=== PATIENT | male | born 1955 | race Caucasian/White ===

== ENCOUNTER 2016-12-07 05:52 | Inpatient (IN) | payer OTHER ==
[~2016-12-07] VITALS: Ht 180.3 cm; Wt 95.3 kg
[2016-12-07] VITALS (9 sets, daily range): BP systolic 131–147; BP diastolic 77–102
[2016-12-07] MEDS ORDERED: ERTAPENEM SODIUM 1,000 MG in NACL 0.9% 50 ML IV ONE (06:05)
[2016-12-07] MEDS ORDERED: KEPPRA XR750 MG PO (06:54)
[2016-12-07] MEDS ORDERED: FLOMAX0.4 MG PO (06:55)
[2016-12-07] MEDS ORDERED: LOSARTAN POTASS25 MG PO (06:55)
[2016-12-07] MEDS ORDERED: CETIRIZINE HCL10 MG PO (06:56)
[2016-12-07] MEDS ORDERED: SINGULAIR10 MG PO (06:56)
[2016-12-07] MEDS ORDERED: VITAMIN D1000 IU PO (06:57)
[2016-12-07] MEDS ORDERED: VITAMIN B12100 MC1 PO (06:58)
[2016-12-07] MEDS ORDERED: ONDANSETRON 4 MG/2 ML VIAL IVP ONE (07:40)
[2016-12-07] MEDS ORDERED: PHENYLEPHRINE 10 MG/ML VIAL IM ONE (07:40)
[2016-12-07] MEDS ORDERED: SUCCINYLCHOLINE CHLORIDE 200 MG/10 ML VIAL IV ONE (07:40)
[2016-12-07] MEDS ORDERED: PROPOFOL 200 MG/20 ML VIAL IV ONE (07:40)
[2016-12-07] MEDS ORDERED: DEXAMETHASONE 4 MG/ML VIAL IVP ONE (07:40)
[2016-12-07] MEDS ORDERED: GLYCOPYRROLATE 0.2 MG/ML VIAL IV ONE (07:40)
[2016-12-07] MEDS ORDERED: ROCURONIUM 50 MG/5 ML VIAL IV ONE (07:40)
[2016-12-07] MEDS ORDERED: SEVOFLURANE 250 ML BTL INH ONE (07:40)
[2016-12-07] MEDS ORDERED: MIDAZOLAM 2 MG/2 ML VIAL ONE (07:44)
[2016-12-07] MEDS ORDERED: BUPIVACAINE-MPF 0.25% 30 ML VIAL INJ ONE ×2 (07:44→11:00)
[2016-12-07] MEDS ORDERED: fentaNYL 0.05 MG/ML VIAL ONE (07:45)
[2016-12-07] MEDS ORDERED: MEPERIDINE 50 MG/ML SYR ONE (07:45)
[2016-12-07] MEDS ORDERED: LACTATED RINGERS 1,000 ML IV SCH (08:33)
[2016-12-07] MEDS ORDERED: MEPERIDINE 25 MG/ML SYR IVP PRN (08:35)
[2016-12-07] MEDS ORDERED: ONDANSETRON 4 MG/2 ML VIAL IVP PRN (08:35)
[2016-12-07] MEDS ORDERED: diphenhydrAMINE 50 MG/ML VIAL IVP PRN (08:35)
[2016-12-07] MEDS ORDERED: HYDROmorphone 1 MG/ML AMP IVP PRN (08:35)
[2016-12-07] MEDS ORDERED: ATIVAN1 MG PO (08:39)
[2016-12-07] MEDS ORDERED: METHYLENE BLUE 1% 10 MG/ML AMP ONE (09:30)
[2016-12-07] MEDS ORDERED: ACETAMINOPHEN 325 MG TAB PO PRN (11:35)
[2016-12-07] MEDS ORDERED: ONDANSETRON 4 MG/2 ML VIAL IV PRN (11:35)
[2016-12-07] MEDS ORDERED: MORPHINE SULFATE 2 MG/ML SYR IVP PRN (11:35)
[2016-12-07] MEDS ORDERED: ZOLPIDEM 5 MG TAB PO PRN (11:35)
--- NOTE | 2016-12-07 12:20 | NUR ---
RECEIVED FROM RR THIS 61 YR. OLD WHITE MALE PER BED ACCPD. BY RR NURSES S/P EXPL. LAP., SIGMOID COLECTOMY WITH ANASTOMOSIS, TAKE DOWN COLOVESICAL FISTULA. PT. IS SEDATED BUT EASY TO AROUSE. 02 SAT 87% TO 88% ON RA. ENCOURAGED TO TAKE DEEP BREATHS. 02 ADM. AT 3L/M. 02 INC, TO 98% TO 99%. HOB ELEVATED 30 DEGREES. ABD. DRESSINGS DRY AND INTACT. ABDOMINAL BINDER IN PLACE. RT MOMO PRESENT WITH SMALL AMT DARK RED DR. FC. IN PLACE. URINE CLEAR YELLOW.
[2016-12-07] MEDS ORDERED: HYDROmorphone PFS 2 MG/ML SYR ONE (12:27)
--- NOTE | 2016-12-07 12:30 | NUR ---
IV CHANGED TO 0.9NS AT 140 ML/HR VIA LEFT HAND IV SITE. SCDS TO LOWER EXT. PRESENT.
[2016-12-07] MEDS: NACL 0.9% 1,000 ML IV SCH ×3 (12:52→19:58)
[2016-12-07] MEDS ORDERED: HYDROmorphone 1 MG/ML AMP ONE (13:06)
[2016-12-07] MEDS: HYDROmorphone 1 MG/ML AMP IVP PRN ×2 (13:06→20:56)
--- NOTE | 2016-12-07 13:15 | NUR ---
VISITING AT BEDSIDE. UPDATED ON PT'S CONDITION.
--- NOTE | 2016-12-07 14:00 | NUR ---
ASKING FOR SOMETHING TO DRINK. INSTRUCTED ON BEING ON NPO. RINSED MOUTH WITH COLD WATER. FELT BETTER AFTER.
--- NOTE | 2016-12-07 14:30 | NUR ---
RT MOMO HAD 50 ML OF DARK RED DRAINAGE.
--- NOTE | 2016-12-07 15:08 | NUR ---
INITIAL REVIEW FAXED TO [facility] [phone] PHONE MARCH [phone]
[2016-12-07] MEDS: MORPHINE SULFATE 4 MG/ML SYR IV PRN ×3 (15:24→23:40)
[2016-12-07] MEDS ORDERED: PNEUMOCOCCAL VACCINE 23 MCG/0.5 ML VIAL IMVAC SCH (15:50)
--- NOTE | 2016-12-07 16:45 | NUR ---
PT. WANTS TO SIT AT EDGE OF BED. "MY BACK IS BOTHERING ME". ASSISTED. FELT BETTER. HAD OCC. BOUTS OF NON- PRODUCTIVE COUGH. VISITING AT BEDSIDE.
--- NOTE | 2016-12-07 17:00 | NUR ---
WANTS OFF. SAT 93% ON RA.
--- NOTE | 2016-12-07 17:45 | NUR ---
STILL SITTING AT SIDE OF BED. DR. ORTIZ HERE TO SEE AND EXAMINE PT.
--- NOTE | 2016-12-07 18:15 | NUR ---
ASSISTED BACK TO BED.
--- NOTE | 2016-12-07 18:30 | NUR ---
PT'S BELONGINGS (BAG OF CLOTHES) TAKEN HOME BY BREANNA
--- NOTE | 2016-12-07 19:30 | NUR ---
RECEIVED REPORT FROM LEVY ROMAN. PT IS AWAKE, ALERT, ORIENTED X4, LYING ON BED COMFORTABLY. ATTACHED TO AUTOMOTIVE FUEL SYSTEMS CONVERTER AND PULSE OXIMETER. IVF AT LEFT HAND 20G, PATENT, INTACT AT THIS TIME. ABDOMINAL BINDER INTACT, MOMO DRAIN AT RIGHT SIDE OF ABDOMEN. NO DRAINAGE NOTED AT THIS TIME. NO SOB/ NO DISTRESS NOTED AT THIS TIME. CORBETT CATH INTACT. SCDS IN PLACE. BED IN LOW POSITION, HOB ELEVATED 30 DEGREES, SAFETY MEASURE ENSURE, WILL CONTINUE TO MONITOR.
--- NOTE | 2016-12-07 20:00 | NUR ---
CALLED DR. ORTIZ FOR YARY ORDER. PLEASE SEE MD ORDER. PT IS ON NPO EXCEPT MEDS ORDERED.
--- NOTE | 2016-12-07 20:15 | NUR ---
FAMILY MEMBER/ AT BEDSIDE. UPDATED OF PATIENT'S CONDITION.
[2016-12-07] MEDS ORDERED: levETIRAcetam 500 MG TAB PO SCH (21:00)
--- NOTE | 2016-12-07 21:15 | NUR ---
PT ASLEEP AT THIS TIME, O2 SAT BETWEEN 84%- 88%. PT PLACED ON O2 AT 2LPM VIA NASAL CANNULA. NO SIGNS OF DISTRESS NOTED, O2 SAT AFTER O2 ADMINISTRATION IS 95%. WILL CONTINUE TO MONITOR. Addendum: 12/07/16 at 2146 by Casper Lanier RN RT AWARE.
--- NOTE | 2016-12-07 22:10 | NUR ---
PT BELONGING ADJUSTMENT. BROUGHT EYEGLASSES. PT SIGNED BELONGING LIST FORM, ATTACHED COPY TO CHART AND ANOTHER GIVEN TO PT.
--- NOTE | 2016-12-07 22:30 | NUR ---
PT AWAKE AT THIS TIME. DENIES PAIN.
--- NOTE | 2016-12-07 23:48 | NUR ---
PT GIVEN MORPHINE 4MG IV ORDERED. COMPLAINT OF ABDOMINAL PAIN, NON-RADIATING. PAIN SCALE 6/10. WILL CONTINUE TO MONITOR. NO SOB/ DISTRESS NOTED.
[2016-12-08] VITALS (8 sets, daily range): BP systolic 119–134; BP diastolic 60–85
--- NOTE | 2016-12-08 00:39 | NUR ---
OXYGEN SAT 96%. PT RESTING COMFORTABLY ON BED.
[2016-12-08] MEDS: NACL 0.9% 1,000 ML IV SCH ×4 (02:03→23:46)
--- NOTE | 2016-12-08 02:06 | NUR ---
PT AWAKE. PT STATED HE IS HAVING DIFFICULTY SLEEPING. PT NOTED TO BE A LITTLE UNEASY. AMBIEN 5MG I TAB GIVEN ORDERED. NO SOB/ DISTRESS NOTED, VSS. WILL CONTINUE TO MONITOR.
--- NOTE | 2016-12-08 04:33 | NUR ---
PT ASLEEP AT THIS TIME.
--- NOTE | 2016-12-08 04:51 | NUR ---
STRINGED INSTRUMENT REPAIRER AT BEDSIDE FOR AM LAB.
[2016-12-08] MEDS: HYDROmorphone 1 MG/ML AMP IVP PRN ×4 (05:55→20:49)
--- NOTE | 2016-12-08 06:02 | NUR ---
MORNING CARE DONE. PT ABLE TO WALK FROM ONE SIDE OF THE BED TO ANOTHER SIDE. WILL CONTINUE TO MONITOR. PT ABLE TO PASS GAS AND ABLE TO BURP. PAIN MEDS, DIALUDID IV GIVEN ORDERED. ABDOMINAL PAIN WITH PAIN SCALE OF 7/10. VSS. WILL CONTINUE TO MONITOR.
--- NOTE | 2016-12-08 06:05 | NUR ---
ABDOMINAL DRESSING CHANGE WITH MINIMAL DRAINAGE/SLIGHT OOZING OF BLOOD AT THE SURGICAL SITE. PICTURE TAKEN AT THE SURGICAL SITE, LENGTH 17.5CM, 20 LOC, SKIN REDNESS NOTED AT BOTH SITE OF THE ABDOMEN DUE TO THE TAPE , PICTURE TAKEN AND ATTACHED TO CHART. SUTURE NOTED AROUND THE MOMO TUBE.
--- NOTE | 2016-12-08 07:15 | NUR ---
REPORT GIVEN TO LEVY CORBETT FOR CONTINUITY OF CARE.
--- NOTE | 2016-12-08 07:20 | NUR ---
RECEIVED REPORT FROM LEVY FERNANDEZ. PT SEEN AT BEDSIDE WATCHING TV; AAOX4, NO S/S DISTRESS AT THIS TIME. PT IS ON 2L O2 VIA NC SATURATING AT 94% AT THIS TIME. PT COMPLAINS OF STUFFY NOSE. LEFT HAND 20G IV RUNNING IVF AT THIS TIME. NO S/S COMPLICATIONS AT THIS TIME; BLOOD RETURN VISIBLE. PT ON BOOM BOSS RUNNING SINUS RHYTHM. CORBETT CATHETER IN PLACE RUNNING CLEAR, YELLOW URINE. PT IS S/P EXP LAP SIGMOID COLECTOMY. PT REPORTS BURPING AND FLATUS DURING THE NIGHT. ABD INCISION NOTED WITH RIGHT LOWER ABD MOMO DRAINING SEROSANGUINEOUS FLUID. PT REPORTS HAVING SEVERE PAIN ON INCISION SITE, BUT MINIMAL PAIN AT THIS TIME. PT ABLE TO AMBULATE X1 ASSIST. SAFETY MEASURES CHECKED, CALL LIGHT LEFT AT BEDSIDE. WILL CONTINUE TO MONITOR.
--- NOTE | 2016-12-08 07:56 | NUR ---
DR ORTIZ AT BEDSIDE TALKING TO PATIENT. UPDATE MD ON PATIENT CONDITION. WILL FOLLOW UP WITH ORDERS.
[2016-12-08] MEDS: levETIRAcetam 500 MG TAB PO SCH ×2 (08:20→20:49)
[2016-12-08] MEDS: LOSARTAN 25 MG TAB PO SCH (08:21)
[2016-12-08] MEDS: LORazepam 1 MG TAB PO SCH ×2 (08:21→08:34)
[2016-12-08] MEDS: TAMSULOSIN 0.4 MG CAP PO SCH (08:21)
[2016-12-08] MEDS: LORATADINE 10 MG TAB PO SCH (08:21)
[2016-12-08] MEDS: MONTELUKAST SODIUM 10 MG TAB PO SCH (08:21)
--- NOTE | 2016-12-08 08:28 | NUR ---
PATIENT HAS BEEN SCREENED AND CATEGORIZED MODERATE NUTRITION RISK. PATIENT WILL BE SEEN WITHIN 3-5 DAYS OF ADMISSION. 12/09/16-12/11/[address]
--- NOTE | 2016-12-08 08:32 | NUR ---
ROUTINE MEDICATIONS GIVEN WITH EDUCATION. PT VERBALIZED UNDERSTANDING. PT REFUSED ATIVAN, VITAMIN D, AND VITAMIN B12 AT THIS TIME. SAYS HE USES THEM ONLY NEEDED BASIS AT HOME.
[2016-12-08] MEDS: CYANOCOBALAMIN 100 MCG TAB PO SCH (08:34)
[2016-12-08] MEDS: CHOLECALCIFEROL 1,000 IU TAB PO SCH (08:34)
[2016-12-08] MEDS ORDERED: NON-FORMULARY ITEM (Cetirizine HCl (Cetirizine Hcl) 10 MG) PO SCH (09:00)
[2016-12-08] MEDS ORDERED: CYANOCOBALAMIN 100 MCG TAB PO SCH (09:00)
[2016-12-08] MEDS ORDERED: NON-FORMULARY ITEM (Levetiracetam* (Keppra Xr*) 750 MG) PO SCH (09:00)
--- NOTE | 2016-12-08 09:00 | NUR ---
PT'S , BREANNA, AT BEDSIDE.
[2016-12-08] MEDS: ENOXAPARIN 40 MG/0.4 ML SYR SUBQ SCH (10:41)
--- NOTE | 2016-12-08 11:08 | NUR ---
FAXED CONCURRENT REVIEW TO [facility] [phone] PHONE MARCH [phone] ANAYA [phone]
--- NOTE | 2016-12-08 11:30 | NUR ---
PT SLEEPING AT THIS TIME. WILL CONTINUE TO MONITOR.
[2016-12-08] MEDS: PIPER/TAZO 3.375GM/D5W PREMIX 50 ML IV SCH ×3 (11:51→23:37)
--- NOTE | 2016-12-08 11:51 | NUR ---
OSMAR ADMINISTERED WITH EDUCATION. PT VERBALIZED UNDERSTANDING. WILL CONTINUE TO MONITOR.
[2016-12-08] MEDS: FAMOTIDINE 20 MG/2 ML VIAL IV SCH (12:53)
--- NOTE | 2016-12-08 13:45 | NUR ---
PT'S , BREANNA AT BEDSIDE. PT INSTRUCTIONS GIVEN TO PATIENT AND HIS . SIGNATURE RECEIVED FOR PATIENT INSTRUCTIONS.
--- NOTE | 2016-12-08 14:05 | NUR ---
DILAUDID ADMINISTERED FOR ABD PAIN 04/26. WILL CONTINUE TO MONITOR.
--- NOTE | 2016-12-08 14:20 | NUR ---
PT C/O STUFFY NOSE. ATTACHED HUMIDIFIER TO O2.
[2016-12-08] MEDS ORDERED: SODIUM CHLORIDE 0.65% 45 ML BTL NS PRN (14:30)
--- NOTE | 2016-12-08 14:33 | NUR ---
PT C/O NASAL CONGESTION. PER DR DEE, ORDER SALINE NASAL SPRAY PRN Q4H FOR CONGESTION. WILL FOLLOW UP WITH ORDER
--- NOTE | 2016-12-08 14:38 | NUR ---
PT STATES THAT HIS NASAL CONGESTION IS MUCH BETTER AFTER ATTACHING THE HUMIDIFIER. WILL CONTINUE TO MONITOR.
--- NOTE | 2016-12-08 16:56 | NUR ---
RECEIVED REPORT FROM LEVY CORBETT. AWAITING ARRIVAL OF PT TO UNIT.
--- NOTE | 2016-12-08 17:02 | NUR ---
PT STATED HE WOULD LIKE PNA VACCINE AT D/C.
--- NOTE | 2016-12-08 17:30 | NUR ---
PT ARRIVED TO UNIT VIA [facility]. PT IS AAOX4, ON O2 2L/MIN NC. IV TO LEFT HAND #20 PATENT AND INTACT. SURGICAL WOUND NOTED TO ABDOMEN, DRESSING DRY AND INTACT WITH ABDOMINAL BINDER IN PLACE. MOMO DRAINAGE BAG X1 NOTED TO RIGHT ABD. CORBETT CATHETER IN PLACE DRAINING TO GRAVITY DRAINAGE DEVICE. PT ORIENTED TO ROOM. SEIZURE PRECAUTIONS IN PLACE WITH BED IN LOWEST POSITION AND SIDE RAILS UPX2, PADDED. CALL LIGHT WITHIN REACH. WILL CONTINUE TO MONITOR. Addendum: 12/08/16 at 1758 by Milla Francis RN BP: 126/79, TEMP: 99.8, HR: 86, RR: 18, O2: 91%.
--- NOTE | 2016-12-08 18:15 | NUR ---
PT TOLERATED MEDS WELL.
--- NOTE | 2016-12-08 19:16 | NUR ---
ENDORSED CARE TO LEVY REYNOSO. PT IN STABLE CONDITION.
--- NOTE | 2016-12-08 19:40 | NUR ---
SEEN PT AWAKE, ALERT AND ORIENTED LYING IN BED. INITIAL ASSESSMENT DONE. PT HAS ABD INCISION W/ DRESSING-CLEAN, DRY AND INTACT W/ ABD BINDER ON. MOMO NOTED W/ SMALL AMOUNT OF SEROSANGUINEOUS OUTPUT. PT DENIES ANY GAS BUT SAID HE'S BURPING. PT STATES HE'S BEEN OUT OF BED LIKE STANDING AND SITTING ON THE EDGE OF THE BED. VITAL SIGNS CHECKED. PT COMPLAINS OF 8/10 INCISIONAL PAIN. WILL MEDICATE FOR PAIN ORDERED. PLAN OF CARE DISCUSSED. PT VERBALIZED UNDERSTANDING. SAFETY ENSURED. WILL CONTINUE TO MONITOR.
--- NOTE | 2016-12-08 21:00 | NUR ---
ASSISTED PT TO GET OUT OF BED. PT WANTS TO STRETCH OUT. MEDICATIONS GIVEN W/ TEACHINGS. WILL CONTINUE TO MONITOR.
--- NOTE | 2016-12-08 23:45 | NUR ---
SEEN PT AWAKE. IVPB GIVEN ORDERED. PT WANTS TO GET UP. ASSISTED PT TO GET OUT OF BED. WILL MEDICATE FOR PAIN ORDERED.
[2016-12-09] VITALS: BP 116/80
[2016-12-09] MEDS: HYDROcodone/APAP 5/325 MG 1 TAB TAB PO PRN ×4 (00:21→20:56)
[2016-12-09 04:00] VITALS: BP 134/94
--- NOTE | 2016-12-09 04:10 | NUR ---
SEEN PT AWAKE AND GOT UP FROM BED STRETCHING W/ HOG KILLER ASSISTANCE. VITAL SIGNS CHECKED. PT DENIES ANY DISCOMFORT. WILL CONTINUE TO MONITOR.
[2016-12-09] MEDS: PIPER/TAZO 3.375GM/D5W PREMIX 50 ML IV SCH ×4 (06:05→23:29)
--- NOTE | 2016-12-09 07:25 | NUR ---
SPOKE TO DR ORTIZ REGARDING PT'S UPDATES. HE SAID TO ADVANCE DIET TO CLEAR LIQUID DIET.
--- NOTE | 2016-12-09 07:26 | NUR ---
PT ALERT AND ORIENTED X4. BREATHING EVENLY AND UNLABORED. NO SIGNS OF ACUTE DISTRESS. SKIN IS WARM AND DRY. NOTED PT IS S/P EXPLORE LAP WITH MOMO DRAIN AT 10CC SEROSANGUINEOUS FLUID. NO C/O NAUSEA, CORBETT CATHETER NOTED WITH CLEAR ANGLE COLORED URINE AT 50CC. CHRISTOPHER OF ANY PAIN AT THIS TIME. ALL NEEDS ATTENDED. SAFETY PRECAUTIONS MAINTAINED. CALL LIGHT WITHIN REACH. Addendum: 12/09/16 at 0840 by Augusto Rowe RN PT ALERT AND ORIENTED X4. BREATHING EVENLY AND UNLABORED. NO SIGNS OF ACUTE DISTRESS. SKIN IS WARM AND DRY. NOTED PT IS S/P EXPLORE LAP WITH MOMO DRAIN AT 10CC SEROSANGUINEOUS FLUID. NO C/O NAUSEA, CORBETT CATHETER NOTED WITH CLEAR ANGLE COLORED URINE AT 50CC. DENIES OF ANY PAIN AT THIS TIME. ALL NEEDS ATTENDED. SAFETY PRECAUTIONS MAINTAINED. CALL LIGHT WITHIN REACH. Addendum: 12/09/16 at 0856 by Augusto Rowe RN PT ALERT AND ORIENTED X4. BREATHING EVENLY AND UNLABORED. NO SIGNS OF ACUTE DISTRESS. SKIN IS WARM AND DRY. NOTED PT IS S/P EXPLORE LAP WITH MOMO DRAIN AT 10CC SEROSANGUINEOUS FLUID. NO C/O NAUSEA, CORBETT CATHETER NOTED WITH CLEAR YELLOW COLORED URINE AT 400CC. CHRISTOPHER OF ANY PAIN AT THIS TIME. ALL NEEDS ATTENDED. SAFETY PRECAUTIONS MAINTAINED. CALL LIGHT WITHIN REACH.
[2016-12-09 08:09] VITALS: BP 126/53
[2016-12-09] MEDS: NACL 0.9% 1,000 ML IV SCH ×3 (08:12→21:47)
[2016-12-09] MEDS: LORATADINE 10 MG TAB PO SCH (08:32)
[2016-12-09] MEDS: LOSARTAN 25 MG TAB PO SCH (08:32)
[2016-12-09] MEDS: levETIRAcetam 500 MG TAB PO SCH ×2 (08:32→20:58)
[2016-12-09] MEDS: TAMSULOSIN 0.4 MG CAP PO SCH (08:32)
[2016-12-09] MEDS: LORazepam 1 MG TAB PO SCH (08:32)
[2016-12-09] MEDS: CHOLECALCIFEROL 1,000 IU TAB PO SCH (08:33)
[2016-12-09] MEDS: CYANOCOBALAMIN 100 MCG TAB PO SCH (08:33)
[2016-12-09] MEDS: MONTELUKAST SODIUM 10 MG TAB PO SCH (08:33)
[2016-12-09] MEDS: ENOXAPARIN 40 MG/0.4 ML SYR SUBQ SCH (08:34)
--- NOTE | 2016-12-09 09:33 | NUR ---
WAS SEEN BY DR. DEE, NEW LAB ORDERS RECEIVED. NOTED AND CARRIED OUT.
--- NOTE | 2016-12-09 09:55 | NUR ---
CM NOTE CONCURRENT REVIEW FAXED TO [facility] / FAX# [phone], ATTN: MARCH #[phone]
[2016-12-09] MEDS: FAMOTIDINE 20 MG/2 ML VIAL IV SCH (11:35)
[2016-12-09 12:00] VITALS: BP 131/78
--- NOTE | 2016-12-09 14:22 | NUR ---
PT ABLE TO AMBULATE AND WALK 180FT. TOLERATED WELL. CONTINUE TO MONITOR.
[2016-12-09 16:00] VITALS: BP 107/66
--- NOTE | 2016-12-09 18:54 | NUR ---
PT ALERT AND RESPONSIVE, NO SIGNS OF ACUTE DISTRESS. ENDORSED TO ONCOMING UNEMPLOYMENT INSURANCE DIRECTOR NURSE FOR CONTINUITY OF CARE.
--- NOTE | 2016-12-09 19:30 | NUR ---
RECEIVED FROM AM RN IN BED AWAKE AND ALERT. ORIENTED X 4. CLEAR SPEECH. TELEMETRY MONITORING. CORBETT CATHETER IN PLACE AND DRAINING WELL WITH YELLOW URINE. MOMO TO RIGHT ABDOMEN WITH SEROUS SANGUINOUS OUTPUT. CALL LIGHT WITH IN REACH. CARE PLANS FOR THE NIGHT DISCUSSED WITH HIM. AFEBRILE.
[2016-12-09 20:00] VITALS: BP 130/89
--- NOTE | 2016-12-09 22:30 | NUR ---
AWAKE AND TALKING WITH CLINICAL LABORATORY TECHNOLOGIST . WATCHING TV. ABLE TO VERBALIZE NEEDS WELL. ENCOURAGED TO USE CALL LIGHT FOR HELP. "OK"
[2016-12-10] VITALS: BP 133/84
--- NOTE | 2016-12-10 | NUR ---
STILL AWAKE AT THIS TIME WATCHING TV. ENCOURAGED TO SLEEP. CALL LIGHT WITH IN REACH. NO BLEEDING NOTED TO ABDOMINAL DRESSING.
--- NOTE | 2016-12-10 02:32 | NUR ---
SLEEPING. NO RESTLESSNESS. CALL LIGHT WITH IN REACH. TELEMETRY MONITORING.
[2016-12-10 04:00] VITALS: BP 115/73
--- NOTE | 2016-12-10 04:19 | NUR ---
SLEEPING WELL. TELEMETRY MONITORING. NO SOB. CALL LIGHT WITH IN REACH.
[2016-12-10] MEDS: HYDROcodone/APAP 5/325 MG 1 TAB TAB PO PRN (05:00)
[2016-12-10] MEDS: PIPER/TAZO 3.375GM/D5W PREMIX 50 ML IV SCH (05:00)
--- NOTE | 2016-12-10 07:17 | NUR ---
RECEIVED REPORT FROM LEVY MCINTYRE. PT IS SLEEPING BUT EASILY AWAKEN, AAO X4, IV ON LEFT HAND PATENT AND INTACT INFUSING FLUID WELL, ABD INCISION WITH DRESSING DRY AND INTACT NOTED, MOMO DRAIN NOTED WITH REDDISH DRAIN, CORBETT CATH IN PLACE DRAINING CLEAR YELLOW URINE, INITIAL ASSESSMENT DONE, NO S/S OF RESPIRATORY DISTRESS OR DISCOMFORT NOTED, DISCUSSED PLAN OF CARE. PT VERBALIZED UNDERSTANDING, SAFETY/FALL PRECAUTION ENFORCED, CALL LIGHT WITHIN REACH, WILL CONTINUE TO MONITOR.
--- NOTE | 2016-12-10 07:39 | NUR ---
SITTING IN BED AWAKE AND ALERT. NO COMPLAINTS DONE. TELEMETRY MONITORING. NO SOB. CALL LIGHT WITH IN REACH.
[2016-12-10 08:00] VITALS: BP 143/92
[2016-12-10] MEDS: TAMSULOSIN 0.4 MG CAP PO SCH (08:35)
[2016-12-10] MEDS: LORazepam 1 MG TAB PO SCH (08:35)
[2016-12-10] MEDS: MONTELUKAST SODIUM 10 MG TAB PO SCH (08:35)
[2016-12-10] MEDS: levETIRAcetam 500 MG TAB PO SCH (08:35)
[2016-12-10] MEDS: CHOLECALCIFEROL 1,000 IU TAB PO SCH (08:36)
[2016-12-10] MEDS: LOSARTAN 25 MG TAB PO SCH (08:36)
[2016-12-10] MEDS: LORATADINE 10 MG TAB PO SCH (08:36)
[2016-12-10] MEDS: ENOXAPARIN 40 MG/0.4 ML SYR SUBQ SCH (08:38)
--- NOTE | 2016-12-10 08:40 | NUR ---
DUE MEDS GIVEN, PT TOLERATED WELL, ALL NEEDS MET AT THIS TIME, CALL LIGHT WITHIN REACH, WILL CONTINUE TO MONITOR.
[2016-12-10] MEDS: CYANOCOBALAMIN 100 MCG TAB PO SCH (09:24)
--- NOTE | 2016-12-10 10:19 | NUR ---
SPOKE TO DR. ORTIZ, UPDATED PT'S CURRENT CONDITION, NEW ORDERS RECEIVED, WILL CARRY OUT NEW ORDERS, INFORMED REGARDING PT'S POTASSIUM OF 3.4, NO NEW ORDERS RECEIVED. DR. ORTIZ STATED HE WILL SEE THE PT LATER.
[2016-12-10] MEDS: NACL 0.9% 1,000 ML IV SCH (11:12)
[2016-12-10 12:00] VITALS: BP 115/73
[2016-12-10] MEDS: FAMOTIDINE 20 MG/2 ML VIAL IV SCH (12:24)
--- NOTE | 2016-12-10 12:53 | NUR ---
PT IS CURRENTLY AMBULATING ON THE HALLWAY, PT IS TOLERATING WELL, NO S/S OF RESPIRATORY DISTRESS OR DISCOMFORT NOTED, WILL CONTINUE TO MONITOR.
--- NOTE | 2016-12-10 14:12 | NUR ---
CM NOTE CONCURRENT REVIEW FAXED TO [facility] / FAX# [phone], ATTN: MARCH #[phone]
[2016-12-10] MEDS ORDERED: NORCO 325 MG-7.1 TAB PO (15:24)
[2016-12-10] MEDS ORDERED: NORCO 325 MG-51 TAB PO (15:27)
[2016-12-10] MEDS ORDERED: ZOFRAN ODT4 MG PO (15:27)
--- NOTE | 2016-12-10 16:00 | NUR ---
DISCHARGE INSTRUCTIONS AND PRESCRIPTION GIVEN, PT TEACHING ON HOW TO EMPTY CORBETT, MOMO DRAIN, AND CLEAN INCISION, PT VERBALIZED UNDERSTANDING, REMOVED TELE, ID WRISTBAND AND IV, CATHETER TIP INTACT, PT REFUSED PNA VACCINE STATED THAT HE WILL GET IT FROM HIS PCP, PT LEFT THE UNIT VIA WHEELCHAIR ACCOMPANIED BY , PT STABLE UPON DISCHARGE.
== END 2016-12-10 16:00 | disposition home or self-care (01) | DRG 441 ==
LOC: MMU 05:52 → EDSTATUS 07:30 → MLD 13:18 → MIC 13:23 → MTU 12-08 17:25
PROVIDERS: ADMIT Surgery; ATTEND Surgery
PROC: 0TQB0ZZ Repair Bladder, Open Approach (ICD-10-PCS; 2016-12-07)
PROC: 0DJD8ZZ Inspection of Lower Intestinal Tract, Via Natural or Artificial Opening Endoscopic (ICD-10-PCS; 2016-12-07)
PROC: 0DBN0ZZ Excision of Sigmoid Colon, Open Approach (ICD-10-PCS; principal; 2016-12-07 07:30)
DX: N32.1 Vesicointestinal fistula (principal); K56.69 Other intestinal obstruction; K57.32 Diverticulitis of large intestine without perforation or abscess without bleeding; J44.9 Chronic obstructive pulmonary disease, unspecified; I10 Essential (primary) hypertension; E78.5 Hyperlipidemia, unspecified; F17.210 Nicotine dependence, cigarettes, uncomplicated; K64.8 Other hemorrhoids; K64.4 Residual hemorrhoidal skin tags; G40.909 Epilepsy, unspecified, not intractable, without status epilepticus; M19.90 Unspecified osteoarthritis, unspecified site; F41.9 Anxiety disorder, unspecified; D72.829 Elevated white blood cell count, unspecified; Z28.21 Immunization not carried out because of patient refusal

== ENCOUNTER 2017-12-25 11:25 | Emergency (ER) | payer OTHER ==
[~2017-12-25] VITALS: Ht 180.3 cm; Wt 95.3 kg
[~2017-12-25 11:25] MED LIST: ACET-2869 PO; CETI10TA71 PO; LEVE750T25 PO; LORA-476 PO; LOSA25TA22 PO; MONT10TA35 PO; ONDA4ODT1 PO; TAMS0.4C96 PO; VITB12 PO; VITD1000 PO
[2017-12-25 11:31] VITALS: BP 143/94
--- NOTE | 2017-12-25 11:36 | NUR ---
PT TAKEN TO BED 10.
--- NOTE | 2017-12-25 11:40 | NUR ---
62M BIB SELF WITH C/O 5/10 "DULL" POSTERIOR RIGHT SHOULDER PAIN RADIATING TO RIGHT ARM SINCE WEDNESDAY MORNING; SUDDEN ONSET, WOKE UP THAT MORNING WITH GRADUAL ONSET OF PAIN; FULL ROM; DENIES INJURY OR TRAUMA, CP, OR SOB. PT REPORTS OF INTERMITTENT NUMBNESS AND TINGLING. CMS INTACT. PT IS AOX4. RR ARE EVEN AND UNLABORED. SKIN WARM/PINK/DRY. NO ACUTE DISTRESS AT THIS TIME. AWAITING ER MD LEIVA. ALL NEEDS MET AT THIS TIME. WILL CONTINUE TO MONITOR.
[2017-12-25] MEDS ORDERED: HYDROcodone/APAP 5/325 MG 1 TAB TAB PO ONE (13:10)
[2017-12-25] MEDS ORDERED: METHOCARBAMOL 500 MG TAB PO SCH (13:10)
--- NOTE | 2017-12-25 13:23 | NUR ---
XRAY AT BEDSIDE.
[2017-12-25 15:25] VITALS: BP 146/90
--- NOTE | 2017-12-25 15:25 | NUR ---
Patient discharged with v/s stable. Written and verbal after care instructions given and explained. Patient alert, oriented and verbalized understanding of instructions. Ambulatory with steady gait. All questions addressed prior to discharge. ID band removed. Patient advised to follow up with PMD. Rx of [place] and Robaxin given. Patient educated on indication of medication including possible reaction and side effects. Opportunity to ask questions provided and answered.
== END 2017-12-25 15:25 | disposition home or self-care (01) ==
LOC: MED 11:25
DX: M25.511 Pain in right shoulder (principal); M62.838 Other muscle spasm; I10 Essential (primary) hypertension
CPT/HCPCS: 71045; 93005; 99284; Q0092

== ENCOUNTER 2021-12-27 12:59 | Emergency (ER) | payer OTHER ==
[~2021-12-27] VITALS: Ht 180.3 cm; Wt 96.6 kg
[~2021-12-27 12:59] MED LIST changes: -ACET-2869 PO; +HYDR-5122 PO; -LOSA25TA22 PO; +LOSA25TA43 PO; +ONDA-188 PO; -ONDA4ODT1 PO
[2021-12-27 13:03] VITALS: BP 144/91
--- NOTE | 2021-12-27 13:15 | NUR ---
Patient ambulated with steady gait to bed 9.
--- NOTE | 2021-12-27 13:15 | NUR ---
Patient ambulated to bed 09 with steady/even gait.
--- NOTE | 2021-12-27 13:18 | NUR ---
Dropped off urine specimen to lab gave sample to Kira, CPT
--- NOTE | 2021-12-27 13:20 | NUR ---
66 y/o M BIB self from home c/o urinary retention x 4 weeks. Patient A&Ox4, ambulatory, has been seen PCP and was prescribed by ABX for UTI. Pt reports ABX completed. Patient states "has some burning towards the end of urinating." Patient states his flow is not strong. Patient has had prostate problems in the past and is currently taking Tamulosin. Patient denies fever, chills, nausea, vomiting, diarrhea. UA collected. Bed locked in lowest position, side rails x 1. PMH/Sx/Meds: Denies NKDA
[2021-12-27 13:52] LABS: APPEARANCE,URINE SL CLOUDY (CLEAR); BILIRUBIN,URINE NEGATIVE (NEGATIVE); BLOOD, URINE NEGATIVE (NEGATIVE); COLOR,URINE YELLOW (YELLOW); LEUKOCYTE ESTERASE ,URINE NEGATIVE (NEGATIVE); NITRITE, URINE NEGATIVE (NEGATIVE); PH,URINE 5.5 (5.0-9.0); UGLUCOSE NEGATIVE (NEGATIVE)
--- NOTE | 2021-12-27 13:54 | NUR ---
Ultrasound at bedside
[2021-12-27 14:11] LABS: WHITE BLOOD COUNT (AUTO) 6.3 K/uL (4.8-10.8)
[2021-12-27 14:28] LABS: BASOPHILS # (AUTO) 0.1 K/uL (0.00-0.22)
[2021-12-27 14:29] LABS: ALBUMIN 4.3 g/dL (3.4-5.0); ANION GAP 12.3 (8-16); CARBON DIOXIDE 24.5 mmol/L (21-32); CREATININE 1.3 mg/dL (0.6-1.3); POTASSIUM 3.8 mmol/L (3.5-5.1); TOTAL BILIRUBIN 0.5 mg/dL (0.0-1.0)
[2021-12-27 14:44] LABS: HEMOGLOBIN 13.8 g/dL (12.0-18.0); MEAN CORPUSCULAR HGB CONC 34 g/dL (33-37); NEUTROPHILS # (AUTO) 4.5 K/uL (1.8-7.7)
[2021-12-27 15:22] LABS: HEMATOCRIT 40.8 % (36-52); MEAN CORPUSCULAR HEMOGLOBIN 33 pg (27-31); PLATELET COUNT (AUTO) 252 K/uL (140-450); RED BLOOD CELL COUNT(AUTO) 4.25 MIL/uL (4.20-6.10); RED CELL DISTRIBUTION WIDTH 14.1 % (11.6-13.7)
[2021-12-27 15:23] LABS: BASOPHILS % (AUTO) 0.9 % (0.0-2.0); EOSINOPHILS # (AUTO) 0.1 K/uL (0-0.4); EOSINOPHILS % (AUTO) 1.5 % (0.0-4.0); LYMPHOCYTES # (AUTO) 1.2 K/uL (2.0-11.5); LYMPHOCYTES % (AUTO) 18.8 % (20.5-51.1); MONOCYTES # (AUTO) 0.5 K/uL (0.8-1.0); MONOCYTES % (AUTO) 7.8 % (1.7-9.3)
--- NOTE | 2021-12-27 16:49 | NUR ---
Chart checked and completed. The patient's care was reviewed and supervised by Brayden Coleman, RN, RN.
--- NOTE | 2021-12-27 16:50 | NUR ---
Patient discharged with INFORMATION FOR BENIGN PROSTATIC HYPERPLASIA AND URINARY FREQUENCY, ADULTS. v/s stable. Written and verbal after care instructions given. Patient verbalized understanding. Ambulatory with steady gait. All questions addressed prior to discharge. Advised to follow up with PMD.
[2021-12-27 16:51] VITALS: BP 135/83
== END 2021-12-27 16:50 | disposition home or self-care (01) ==
LOC: MED 12:59
DX: R33.9 Retention of urine, unspecified (principal); I10 Essential (primary) hypertension; Z79.899 Other long term (current) drug therapy; Z98.890 Other specified postprocedural states
CPT/HCPCS: 36415; 76770; 80053; 81003; 85025; 87086; 99284; Q0092